=== PATIENT | male | born 1970 | race Caucasian/White ===

== ENCOUNTER 2018-05-25 14:14 | Inpatient (IN) | payer MEDICAID, OTHER ==
[~2018-05-25] VITALS: Ht 182.9 cm; Wt 94.1 kg
[2018-05-25 14:59] LABS: BASOPHILS % (AUTO) 0.4 % (0.0-2.0); EOSINOPHILS % (AUTO) 1.7 % (1.0-6.0); HEMATOCRIT 38.5 % (41-53); HEMOGLOBIN 13.1 g/dL (13.5-17.5); LYMPHOCYTES % (AUTO) 13.4 % (22.0-44.0); MEAN CORPUSCULAR HGB CONC 33.9 G/dL (31.0-37.0); MEAN CORPUSCULAR VOLUME 85 fL (80-100); MONOCYTES # (AUTO) 0.7 K/uL (0.1-1.0); NEUTROPHILS # (AUTO) 5.3 K/uL (1.8-7.7); NEUTROPHILS % (AUTO) 74.5 % (40.0-70.0); PLATELET COUNT (AUTO) 213 K/uL (150-450); RED BLOOD CELL COUNT(AUTO) 4.51 MIL/uL (4.50-5.90); RED CELL DISTRIBUTION WIDTH 13.8 % (11.5-14.5)
[2018-05-25 15:04] LABS: ANION GAP 11 mmol/L (8-16); CALCIUM, TOTAL 8.8 mg/dL (8.8-10.5); CARBON DIOXIDE 26 mmol/L (22-29); CHLORIDE 106 mmol/L (98-107); CREATININE 0.87 mg/dL (0.60-1.30); GLOMERULAR FILTR. RATE CALC > 60 mL/min (>60); GLUCOSE,RANDOM 87 mg/dL (70-110); POTASSIUM 3.7 mmol/L (3.5-5.1); SODIUM SERUM 143 mmol/L (136-145); UREA NITROGEN, BLOOD 18 mg/dL (7-18)
[2018-05-25 15:11] LABS: ALANINE AMINOTRANSFERASE 42 U/L (12-78); ALBUMIN 3.5 g/dL (3.4-5.0); ALKALINE PHOSPHATASE 62 U/L (46-116); ASPARTATE AMINOTRANSFERASE 48 U/L (15-37); BILIRUBIN,TOTAL 0.3 mg/dL (0.1-1.0); TOTAL PROTEIN, SERUM 6.6 g/dL (6.4-8.2)
[2018-05-25] MEDS ORDERED: HALOPERIDOL LACTATE 5 MG/ML VIAL IM ONE (17:45)
[2018-05-25] MEDS ORDERED: LORazepam 2 MG/ML VIAL IM ONE (17:45)
[2018-05-25] MEDS ORDERED: DiphenhydrAMINE HCL 50 MG/ML VIAL IM ONE (17:45)
[2018-05-25 18:15] LABS: AMPHET/METH SCREEN,URINE NEGATIVE (NEGATIVE); BARBITURATE SCREEN, URINE NEGATIVE (NEGATIVE); BENZODIAZEPINES SCREEN,URINE NEGATIVE (NEGATIVE); CANNABINOID SCREEN,URINE POSITIVE (NEGATIVE); COCAINE SCREEN,URINE NEGATIVE (NEGATIVE); METHADONE SCREEN, URINE NEGATIVE (NEGATIVE); OPIATE SCREEN,URINE NEGATIVE (NEGATIVE)
[2018-05-25 18:17] LABS: PHENCYCLIDINE SCREEN,URINE NEGATIVE (NEGATIVE)
[2018-05-25 18:22] LABS: APPEARANCE,URINE CLOUDY (CLEAR); GLUCOSE, URINE (UA) NEGATIVE (NEGATIVE); KETONES,URINE TRACE mg/dL (NEGATIVE); LEUKOCYTE ESTERASE ,URINE NEGATIVE (NEGATIVE); NITRATE,URINE NEGATIVE (NEGATIVE); OCCULT BLOOD,URINE NEGATIVE (NEGATIVE); PH,URINE 5.5 (5.0-8.0); PROTEIN,URINE TRACE (NEGATIVE)
[2018-05-25 18:37] LABS: BILIRUBIN,URINE PRELIM. POSITIVE (NEGATIVE)
[2018-05-25 18:45] LABS: BACTERIA,URINE Rare /HPF (None Seen); MUCUS,URINE Moderate LPF (None Seen); RBC,URINE None Seen /HPF (0-2); SQUAMOUS EPITHELIAL CELL,UR Moderate /LPF (None Seen); WBC,URINE 0-2 /HPF (0-5)
[2018-05-25 20:22] LABS: CHOLESTEROL 164 mg/dL (131-200); FREE T4 (FREE THYROXINE) 1.25 ng/dL (0.76-1.46); HDL CHOLESTEROL 54 mg/dL (40-60); LDL CHOL (CALC.) 89 mg/dL (0-130); THYROID STIMULATING HORMONE 0.98 uIU/mL (0.36-3.74); TRIGLYCERIDES 107 mg/dL (15-150)
[2018-05-26 00:55] VITALS: BP 116/79
[2018-05-26] MEDS: LORazepam 2 MG TABLET PO PRN ×2 (07:38→19:37)
[2018-05-26] MEDS ORDERED: MAG HYDROX/AL HYDROX/SIMETH ES 30 ML SUSPENSION UDCUP PO PRN (07:45)
[2018-05-26] MEDS ORDERED: IBUPROFEN 600 MG TABLET PO PRN (07:45)
[2018-05-26] MEDS ORDERED: BACITRACIN 28.4 GM OINTMENT TP PRN (07:45)
[2018-05-26] MEDS ORDERED: ACETAMINOPHEN 325 MG TABLET PO PRN (07:45)
[2018-05-26] MEDS ORDERED: ONDANSETRON HCL 4 MG TABLET PO PRN (07:45)
[2018-05-26] MEDS ORDERED: ALBUTEROL SULFATE HFA 90 MCG/PUFF 8 GM INHALER IH PRN (07:45)
[2018-05-26] MEDS ORDERED: CloNIDine HCL 0.1 MG TABLET PO PRN (07:45)
[2018-05-26] MEDS ORDERED: BENZOCAINE/MENTHOL LOZENGE MM PRN (07:45)
[2018-05-26] MEDS ORDERED: MAGNESIUM HYDROXIDE SUSPENSION 30 ML UDCUP PO PRN (07:45)
[2018-05-26] MEDS ORDERED: PETROLATUM,WHITE 71 GM JELLY TP PRN (07:45)
[2018-05-26] MEDS ORDERED: LOPERAMIDE HCL 2 MG CAPSULE PO PRN (07:45)
[2018-05-26 08:00] VITALS: BP 113/70
[2018-05-26] MEDS: DOCUSATE SODIUM 100 MG CAPSULE PO SCH (09:00)
[2018-05-26] MEDS: OMEPRAZOLE 20 MG CAPSULE PO SCH (09:00)
[2018-05-26 17:18] VITALS: BP 127/92
[2018-05-26] MEDS: HALOPERIDOL 5 MG TABLET PO PRN (19:37)
[2018-05-26] MEDS ORDERED: LORazepam 2 MG/ML VIAL ONE (19:39)
[2018-05-26] MEDS ORDERED: HALOPERIDOL LACTATE 5 MG/ML VIAL ONE (19:39)
[2018-05-26] MEDS ORDERED: DiphenhydrAMINE HCL 50 MG/ML VIAL ONE (19:40)
[2018-05-26] MEDS ORDERED: LORazepam 2 MG/ML VIAL IM ONE (19:45)
[2018-05-26] MEDS ORDERED: DiphenhydrAMINE HCL 50 MG/ML VIAL IM ONE (19:45)
[2018-05-26] MEDS ORDERED: HALOPERIDOL LACTATE 5 MG/ML VIAL IM ONE (19:45)
[2018-05-27] MEDS: RisperiDONE 2 MG TABLET PO SCH ×2 (09:00→16:17)
[2018-05-27] MEDS: OMEPRAZOLE 20 MG CAPSULE PO SCH (09:00)
[2018-05-27] MEDS: DOCUSATE SODIUM 100 MG CAPSULE PO SCH (09:00)
[2018-05-27] MEDS: DIVALPROEX SODIUM 500 MG DR TABLET PO SCH ×2 (09:00→16:17)
[2018-05-27] MEDS ORDERED: HALOPERIDOL LACTATE 5 MG/ML VIAL IM ONE (12:15)
[2018-05-27] MEDS ORDERED: LORazepam 2 MG/ML VIAL IM ONE (12:15)
[2018-05-27] MEDS ORDERED: DiphenhydrAMINE HCL 50 MG/ML VIAL IM ONE (12:15)
[2018-05-27] MEDS: LORazepam 2 MG TABLET PO PRN (16:18)
[2018-05-28] MEDS: LORazepam 2 MG TABLET PO PRN ×2 (00:24→06:04)
[2018-05-28] MEDS: HALOPERIDOL 5 MG TABLET PO PRN (06:04)
[2018-05-28] MEDS: DIVALPROEX SODIUM 500 MG DR TABLET PO SCH ×2 (09:00→16:38)
[2018-05-28] MEDS: OMEPRAZOLE 20 MG CAPSULE PO SCH (09:00)
[2018-05-28] MEDS: RisperiDONE 2 MG TABLET PO SCH ×2 (09:00→16:39)
[2018-05-28] MEDS: DOCUSATE SODIUM 100 MG CAPSULE PO SCH (09:00)
[2018-05-28 09:36] VITALS: BP 126/99
[2018-05-28] MEDS ORDERED: HALOPERIDOL LACTATE 5 MG/ML VIAL ONE (12:27)
[2018-05-28] MEDS ORDERED: LORazepam 2 MG/ML VIAL ONE (12:27)
[2018-05-28] MEDS ORDERED: DiphenhydrAMINE HCL 50 MG/ML VIAL ONE (12:27)
[2018-05-28] MEDS ORDERED: DiphenhydrAMINE HCL 50 MG/ML VIAL IM ONE (12:30)
[2018-05-28] MEDS ORDERED: LORazepam 2 MG/ML VIAL IM ONE ×2 (12:30→16:15)
[2018-05-28] MEDS ORDERED: HALOPERIDOL LACTATE 5 MG/ML VIAL IM ONE ×2 (12:30→16:15)
[2018-05-29] MEDS: HALOPERIDOL 5 MG TABLET PO PRN (01:02)
[2018-05-29] MEDS: LORazepam 2 MG TABLET PO PRN (01:03)
[2018-05-29] MEDS: ZOLPIDEM TARTRATE 10 MG TABLET PO PRN (01:03)
[2018-05-29] MEDS: RisperiDONE 2 MG TABLET PO SCH (08:21)
[2018-05-29] MEDS: OMEPRAZOLE 20 MG CAPSULE PO SCH (08:21)
[2018-05-29] MEDS: DOCUSATE SODIUM 100 MG CAPSULE PO SCH (08:21)
[2018-05-29] MEDS: DIVALPROEX SODIUM 500 MG DR TABLET PO SCH ×2 (08:21→16:00)
[2018-05-29 08:51] VITALS: BP 125/85
[2018-05-29] MEDS ORDERED: LORazepam 2 MG/ML VIAL IM ONE (11:30)
[2018-05-29] MEDS ORDERED: DiphenhydrAMINE HCL 50 MG/ML VIAL IM ONE (11:30)
[2018-05-29] MEDS ORDERED: HALOPERIDOL LACTATE 5 MG/ML VIAL IM ONE (11:30)
[2018-05-29] MEDS: BENZTROPINE MESYLATE 1 MG TABLET PO SCH (16:00)
[2018-05-29] MEDS: RisperiDONE 3 MG TABLET PO SCH (16:00)
[2018-05-29] MEDS: HALOPERIDOL 5 MG TABLET PO SCH (20:03)
[2018-05-30] MEDS: LORazepam 2 MG TABLET PO PRN ×3 (01:37→14:55)
[2018-05-30] MEDS: ZOLPIDEM TARTRATE 10 MG TABLET PO PRN (01:37)
[2018-05-30] MEDS: HALOPERIDOL 5 MG TABLET PO PRN ×3 (01:41→14:55)
[2018-05-30] MEDS ORDERED: DiphenhydrAMINE HCL 50 MG/ML VIAL IM ONE (08:15)
[2018-05-30] MEDS ORDERED: HALOPERIDOL LACTATE 5 MG/ML VIAL IM ONE (08:15)
[2018-05-30] MEDS ORDERED: LORazepam 2 MG/ML VIAL IM ONE (08:15)
[2018-05-30 08:36] VITALS: BP 122/86
[2018-05-30] MEDS: DIVALPROEX SODIUM 500 MG DR TABLET PO SCH ×2 (10:37→17:55)
[2018-05-30] MEDS: BENZTROPINE MESYLATE 1 MG TABLET PO SCH ×2 (10:37→17:55)
[2018-05-30] MEDS: OMEPRAZOLE 20 MG CAPSULE PO SCH (10:38)
[2018-05-30] MEDS: DOCUSATE SODIUM 100 MG CAPSULE PO SCH (10:38)
[2018-05-30] MEDS: RisperiDONE 3 MG TABLET PO SCH ×2 (10:38→17:55)
[2018-05-30] MEDS: HALOPERIDOL 5 MG TABLET PO SCH (21:16)
[2018-05-31] MEDS: LORazepam 2 MG TABLET PO PRN ×2 (09:01→13:16)
[2018-05-31] MEDS: DIVALPROEX SODIUM 500 MG DR TABLET PO SCH ×2 (09:01→16:16)
[2018-05-31] MEDS: HALOPERIDOL 5 MG TABLET PO PRN ×2 (09:01→13:17)
[2018-05-31] MEDS: RisperiDONE 3 MG TABLET PO SCH ×2 (09:01→16:16)
[2018-05-31] MEDS: DOCUSATE SODIUM 100 MG CAPSULE PO SCH (09:01)
[2018-05-31] MEDS: BENZTROPINE MESYLATE 1 MG TABLET PO SCH ×2 (09:02→16:16)
[2018-05-31] MEDS: OMEPRAZOLE 20 MG CAPSULE PO SCH (09:02)
[2018-05-31 10:39] VITALS: BP 117/77
[2018-05-31 16:33] VITALS: BP 109/75
[2018-05-31] MEDS: HALOPERIDOL 5 MG TABLET PO SCH (20:01)
[2018-06-01] MEDS: LORazepam 2 MG TABLET PO PRN ×4 (00:39→21:29)
[2018-06-01] MEDS: ZOLPIDEM TARTRATE 10 MG TABLET PO PRN ×2 (00:39→23:52)
[2018-06-01] MEDS: HALOPERIDOL 5 MG TABLET PO PRN (05:04)
[2018-06-01] MEDS: DOCUSATE SODIUM 100 MG CAPSULE PO SCH (08:22)
[2018-06-01] MEDS: DIVALPROEX SODIUM 500 MG DR TABLET PO SCH ×2 (08:22→20:00)
[2018-06-01] MEDS: OMEPRAZOLE 20 MG CAPSULE PO SCH (08:22)
[2018-06-01] MEDS: BENZTROPINE MESYLATE 1 MG TABLET PO SCH ×2 (08:22→20:00)
[2018-06-01] MEDS: RisperiDONE 3 MG TABLET PO SCH ×2 (08:23→20:00)
[2018-06-01 10:20] VITALS: BP 120/75
[2018-06-01] MEDS ORDERED: LORazepam 2 MG/ML VIAL ONE (15:09)
[2018-06-01] MEDS ORDERED: DiphenhydrAMINE HCL 50 MG/ML VIAL ONE (15:09)
[2018-06-01] MEDS ORDERED: DiphenhydrAMINE HCL 50 MG/ML VIAL IM ONE (15:15)
[2018-06-01] MEDS ORDERED: HALOPERIDOL LACTATE 5 MG/ML VIAL IM ONE (15:15)
[2018-06-01] MEDS ORDERED: LORazepam 2 MG/ML VIAL IM ONE (15:15)
[2018-06-01] MEDS: HALOPERIDOL 5 MG TABLET PO SCH (21:28)
[2018-06-02] MEDS: HALOPERIDOL 5 MG TABLET PO PRN (05:45)
[2018-06-02] MEDS: LORazepam 2 MG TABLET PO PRN (05:45)
[2018-06-02 08:00] VITALS: BP 114/66
[2018-06-02] MEDS: OMEPRAZOLE 20 MG CAPSULE PO SCH (08:01)
[2018-06-02] MEDS: DIVALPROEX SODIUM 500 MG DR TABLET PO SCH (08:01)
[2018-06-02] MEDS: BENZTROPINE MESYLATE 1 MG TABLET PO SCH (08:01)
[2018-06-02] MEDS: DOCUSATE SODIUM 100 MG CAPSULE PO SCH (08:01)
[2018-06-02] MEDS: RisperiDONE 3 MG TABLET PO SCH (08:02)
[2018-06-02] MEDS ORDERED: RISP3 PO (10:04)
[2018-06-02] MEDS ORDERED: HALO5TAB2 PO (10:04)
[2018-06-02] MEDS ORDERED: BENZ1TAB10 PO (10:04)
[2018-06-02] MEDS ORDERED: DIVA-78 PO (10:04)
[2018-06-02] MEDS ORDERED: OMEP20 PO (10:04)
[2018-06-02] MEDS ORDERED: DSS100 PO (10:04)
== END 2018-06-02 11:30 | disposition home or self-care (01) | DRG 750 ==
LOC: EMS 14:17 → 3EC 21:30
PROVIDERS: ADMIT Psychiatry & Neurology Psychiatry; ATTEND Psychiatry & Neurology Psychiatry
DX: F20.0 Paranoid schizophrenia (principal); F29 Unspecified psychosis not due to a substance or known physiological condition; F17.200 Nicotine dependence, unspecified, uncomplicated; G47.00 Insomnia, unspecified; K59.00 Constipation, unspecified; Z53.20 Procedure and treatment not carried out because of patient's decision for unspecified reasons; M54.5 Low back pain; Z71.6 Tobacco abuse counseling; Z71.51 Drug abuse counseling and surveillance of drug abuser; Z28.21 Immunization not carried out because of patient refusal
CPT/HCPCS: 83036; 84439; 84443; 96372; G0480; J1200; J1630; J2060